=== PATIENT | male | born 1975 | race Two or more races ===

== ENCOUNTER 2025-08-03 13:25 | Emergency (ER) | payer MEDICAID, OTHER ==
[~2025-08-03] VITALS: Ht 172.7 cm; Wt 98.6 kg
[2025-08-03 14:44] VITALS: BP 129/75; PULSE 92; RESP 18; TEMP 98.1; O2SAT 97
== END 2025-08-03 15:09 | disposition left against medical advice (07) ==
LOC: ER 13:25
DX: R06.02 Shortness of breath (principal); Z79.899 Other long term (current) drug therapy